=== PATIENT | male | born 1955 | race Caucasian/White ===

== ENCOUNTER 2022-02-07 14:19 | Emergency (ER) | payer MEDICARE, SELFPAY ==
[2022-02-07 14:36] VITALS: BP 151/87; PULSE 97; RESP 16; TEMP 36.8; O2SAT 98
--- NOTE | 2022-02-07 16:01 | ED.URI ---
HPI - URI/Sore Throat General Chief Complaint: Upper Respiratory Infection Stated Complaint: Sinus Congestion Time Seen by Provider: 02/07/22 15:40 Source: patient, RN notes reviewed and old records reviewed Mode of arrival: ambulatory Limitations: no limitations History of Present Illness HPI Narrative: 66-year-old male who presents to [facility] care with complaints OF HEADACHE WITH SINUS PRESSURE AND DRAINAGE FOR THE PAST 3 DAYS, PATIENT REPORT HISTORY OF SINUS PROBLEMS AND SINUS INFECTIONS IN THE PAST. HE STATES THAT HIS DAUGHTER JUST SOLD HER HOUSE AND SHE WAS GETTING READY TO MOVE SO HE WAS OVER THERE ALL WEEKEND SWEEPING CLEANING OF HOUSE AND WAS EXPOSED TO A LOT OF DUST IN THE BASEMENT. PATIENT STATES THAT HIS HEADACHE HAS DECREASED SOME BUT HE CONTINUES TO HAVE FACIAL PRESSURE AND PAIN, NASAL DRAINAGE AND SOME DRY COUGH.PATIENT REPORTS THAT HE HAS TAKEN IBUPROFEN MD elicited complaint: cough, rhinorrhea, nasal congestion and sinus pain Onset (ago): day(s) (3) Pain scale (0-10): 4 Description of mucous: clear Able to tolerate fluids by mouth: Yes Treatments prior to arrival: ibuprofen and other (DAYQUIL AND NYQUIL) Related Data Allergies Allergy/AdvReac Type Severity Reaction Status Date / Time codeine Allergy Unknown Itching Verified 02/07/22 14:51 Review of Systems Review of Systems: CONSTITUTIONAL: Denies malaise, chills, sweats, or fever. EYES: Denies visual changes, redness, or discharge. ENT: Reports rhinorrhea, congestion, sinus pain, NO otalgia and sore throat. CARDIOVASCULAR: Denies chest pain, palpitations, or edema. RESPIRATORY: Reports cough.? Denies dyspnea. GASTROINTESTINAL: Denies abdominal pain, nausea, vomiting, diarrhea SKIN: Denies rash or itching. MUSCULOSKELETAL: Denies myalgia. NEUROLOGIC:REPORTS headache. All systems reviewed & are unremarkable except as noted in HPI and below PMFSH Past Medical History Medical History (Updated 02/07/22 @ 16:36 by Siri Hogan NP) Heart attack Hypertension Hypothyroid Surgical History Surgical History (Updated 02/07/22 @ 16:38 by Siri Hogan NP) History of heart artery stent Social History Social History (Updated 02/07/22 @ 16:39 by Siri Hogan NP) Smoking status: Never smoker Alcohol intake: unknown Substance use type: does not use Living arrangements: with family Gender identity (if verbalized by the patient): Male Comments At time of signature, agree with nursing past medical, surgical, social and family history. There is no relevant family history pertinent to the presenting complaint Exam Narrative: GENERAL: Well-appearing, well-nourished, and in no acute distress. HEAD: Normocephalic EYES: PERRLA, conjunctivae clear ENT: Nares clear, turbinates edematous and erythematous, clear discharge. Mucous membranes moist. TM pearly lyons with dull light reflex bilaterally; no tragal tenderness. Oropharynx erythematous without lesions. Tonsils not enlarged and without exudate, no drooling, no hoarseness, no trismus, uvula midline. NECK: Supple. No lymphadenopathy CHEST: Clear to auscultation, breath sounds equal. No wheezing, rhonchi, rales, or stridor. No respiratory distress, speaks in full sentences. HEART: Regular rate and rhythm. No murmur heard. SKIN: Warm, dry, no rash. NEURO: Alert and oriented x3. PSYCH: Normal mood and affect Course Course Emergency Course: Patient is aware of diagnosis, understands and agrees to treatment plan.? Anticipatory guidance given.? Patient agrees to follow-up as directed and is aware of reasons to seek care at the emergency department. Portions of this record may have been created with voice recognition software Level of Care: Express Care Visit Vital Signs Vital signs: Vital Signs Temperature 36.8 C 02/07/22 14:36 Pulse Rate 97 02/07/22 14:36 Respiratory Rate 16 02/07/22 14:36 Blood Pressure 151/87 H 02/07/22 14:36 Pulse Oximetry
== END 2022-02-07 16:18 | disposition home or self-care (01) ==
PROVIDERS: Emergency Provider Registered Nurse; PCP Family Medicine
DX: J32.9 Chronic sinusitis, unspecified (principal); I10 Essential (primary) hypertension; E03.9 Hypothyroidism, unspecified; I25.2 Old myocardial infarction
CPT/HCPCS: 99203; G0463

== ENCOUNTER 2022-02-24 09:37 | Emergency (ER) | payer MEDICARE, SELFPAY ==
[2022-02-24 09:50] VITALS: BP 145/90; PULSE 68; RESP 20; TEMP 36.3; O2SAT 100
--- NOTE | 2022-02-24 10:09 | ED.URI ---
HPI - URI/Sore Throat General Chief Complaint: Upper Respiratory Infection Stated Complaint: sore throat deep cough Time Seen by Provider: 02/24/22 09:55 Source: patient Mode of arrival: ambulatory Limitations: no limitations History of Present Illness HPI Narrative: Mr. Olvera is a 66-year-old male patient presenting to the clinic today with complaints of sore throat, cough, and head congestion x2 days. He reports that the sore throat got worse this morning. Cough is productive and clear/white phlegm. He denies any fever or chills. He does use a CPAP at night. MD elicited complaint: cough, sore throat and nasal congestion Related Data Home Medications Medication Instructions Recorded Confirmed atorvastatin 80 mg tablet 80 mg PO DAILY 02/24/22 02/24/22 diclofenac sodium 75 mg 75 mg PO BID 02/24/22 02/24/22 tablet,delayed release donepezil 5 mg tablet 5 mg PO DAILY 02/24/22 02/24/22 levothyroxine 112 mcg tablet 112 mcg PO DAILY 02/24/22 02/24/22 losartan 50 mg tablet 50 mg PO DAILY 02/24/22 02/24/22 metoprolol succinate 100 mg 100 mg PO DAILY 02/24/22 02/24/22 tablet,extended release 24 hr potassium chloride 20 mEq 20 meq PO BID 02/24/22 02/24/22 tablet,extended release(part/cryst) tramadol 50 mg tablet 50 mg PO DAILY PRN Pain (Scale 02/24/22 02/24/22 Score 4-6) Allergies Allergy/AdvReac Type Severity Reaction Status Date / Time codeine Allergy Unknown Itching Verified 02/07/22 14:51 Review of Systems Review of Systems: Pertinent positives per HPI. Patient denies any fever, chills, rash, headache, visual changes, dizziness, shortness of breath, chest pain, palpitations, nausea, vomiting, diarrhea, constipation, abdominal pain, or any urinary issues. [facility] Past Medical History Medical History Heart attack Hypertension Hypothyroid Surgical History Surgical History History of heart artery stent Social History Social History Smoking status: Never smoker Alcohol intake: unknown Substance use type: does not use Gender identity (if verbalized by the patient): Male Comments At the time of my signature, I reviewed and agree with the nursing past medical, surgical, social, and family history. There is no relevant family history pertinent to the patient complaint. Exam Narrative: General: Well-developed, well nourished, in no apparent distress Head: Normocephalic, atraumatic Eyes: Pupils equally round and reactive to light bilaterally, EOM intact, sclera and conjunctive clear, no discharge, lids normal Ears: TMs intact and clear, ear canals clear, no drainage, grossly hearing normal. Nose: Nares patent, clear nasal discharge, moderate inflammation, no sinus tenderness. Mouth: Oral pharynx without lesions or masses, good dentition, MMM. Postnasal drip Neck: Supple, trachea midline, no enlargement of anterior or posterior cervical nodes, no thyroid masses or goiter palpable. Cardio: Regular rate and rhythm, s1 and s2 normal, no murmur appreciated. Resp: Clear to auscultation bilaterally, no rhonchi, rales, wheezing or rubs Course Course Emergency Course: Portions of this record may have been created with voice recognition software. Level of Care: Express Care Visit Vital Signs Vital signs: Vital Signs Temperature 36.3 C L 02/24/22 09:50 Pulse Rate 68 02/24/22 09:50 Respiratory Rate 20 02/24/22 09:50 Blood Pressure 145/90 H 02/24/22 09:50 Pulse Oximetry 100 02/24/22 09:50 Oxygen Delivery Room Air 02/24/22 09:50 Temperature 36.3 C L 02/24/22 09:50 Pulse Rate 68 02/24/22 09:50 Respiratory Rate 20 02/24/22 09:50 Blood Pressure 145/90 H 02/24/22 09:50 Pulse Oximetry 100 02/24/22 09:50 Oxygen Delivery Room Air 02/24/22 09:50 Vital signs reviewed MDM - U
== END 2022-02-24 10:34 | disposition home or self-care (01) ==
PROVIDERS: Emergency Provider Nurse Practitioner Family; PCP Family Medicine
DX: J02.9 Acute pharyngitis, unspecified (principal); J06.9 Acute upper respiratory infection, unspecified; R09.82 Postnasal drip; I10 Essential (primary) hypertension; E03.9 Hypothyroidism, unspecified; I25.2 Old myocardial infarction; Z95.5 Presence of coronary angioplasty implant and graft
CPT/HCPCS: 87081; 87880; 99213; G0463

== ENCOUNTER 2023-03-28 15:37 | Emergency (ER) | payer MEDICARE, SELFPAY ==
--- NOTE | 2023-03-28 15:50 | ED.MALEGU ---
HPI - Male Genitourinary General Chief complaint: Extremity Problem,Nontraumatic Stated complaint: fever/aches/painful urination Time Seen by Provider: 03/28/23 15:53 Source: patient, RN notes reviewed and old records reviewed Mode of arrival: ambulatory Limitations: no limitations History of Present Illness HPI Narrative: 67 year old male presents to express care with complaints of painful urination, urinary frequency, dribbling of urine for the past 5 days, states that it dougherty when he urinated. Patient also states that he has had some chills and also some body aches denies any known fevers. Patient also states that he has a bruise to his right upper inner thigh for 5 days with bruising noted to be fading then recalls he did fall when he was deer hunting during that time. MD Complaint: dysuria and other (chills and body aches) Onset (ago): day(s) (5) Severity scale (1-10): 8 Quality: burning Associated symptoms: Reports dysuria and other (dribbling urine) Related Data Home Medications Medication Instructions Recorded Confirmed atorvastatin 80 mg tablet 80 mg PO DAILY 02/24/22 03/28/23 diclofenac sodium 75 mg 75 mg PO BID 02/24/22 03/28/23 tablet,delayed release donepezil 5 mg tablet 5 mg PO DAILY 02/24/22 03/28/23 levothyroxine 112 mcg tablet 112 mcg PO DAILY 02/24/22 03/28/23 losartan 50 mg tablet 50 mg PO DAILY 02/24/22 03/28/23 metoprolol succinate 100 mg 100 mg PO DAILY 02/24/22 03/28/23 tablet,extended release 24 hr potassium chloride 20 mEq 20 meq PO BID 02/24/22 03/28/23 tablet,extended release(part/cryst) tramadol 50 mg tablet 50 mg PO DAILY PRN Pain (Scale 02/24/22 03/28/23 Score 4-6) Allergies Allergy/AdvReac Type Severity Reaction Status Date / Time codeine Allergy Unknown Itching Verified 03/28/23 16:07 Review of Systems Review of Systems: CONSTITUTIONAL: Reports no fever,positive for chills, or sweats. CARDIOVASCULAR: Denies chest pain, palpitations, or edema. RESPIRATORY: Denies cough or dyspnea. GASTROINTESTINAL: Denies abdominal pain, nausea, vomiting, or diarrhea. GENITOURINARY: Reports dysuria, frequency, urgency dribbling urine Denies flank pain or hematuria. SKIN: Denies rash or itching.fading bruise to right inner thigh MUSCULOSKELETAL: Denies back pain or myalgia. Denies CVA tenderness NEUROLOGIC: Denies headache All systems reviewed & are unremarkable except as noted in HPI and below PMFSH Past Medical History Medical History Brain tumor Dementia Heart attack Hypertension Hypothyroid Kidney stone Neutropenia Surgical History Surgical History History of heart artery stent Social History Social History Smoking status: Never smoker Alcohol intake: unknown Substance use type: does not use Living arrangements: with family Gender identity (if verbalized by the patient): Male Comments At time of signature, agree with nursing past medical, surgical, social and family history. There is no relevant family history pertinent to the presenting complaint Exam Narrative: GENERAL: Well-appearing, well-nourished, and in no acute distress. HEAD: Normocephalic, atraumatic. NECK: Supple. no lymphadenopathy CHEST: Clear to auscultation. No respiratory distress.SAO2 98% on room air HEART: Regular rate and rhythm. No murmur heard. Normal peripheral pulses. ABDOMEN: Soft, nontender, nondistended, normal active bowel sounds. No CVA tenderness, reports burning on urination, dribbling of urine and frequency of urination, no testicle pain EXTREMITIES: Normal range of motion. No edema. SKIN: Warm, dry, no rash.fading bruise right thigh 6cmX12 cm NEURO: No focal deficits. Alert and oriented x3.appears forgetful Course Course Emergency Course: Patient is aware of diagnosis, understands and agrees to treatment p
[2023-03-28 15:51] VITALS: BP 126/74; PULSE 86; RESP 18; TEMP 36.7; O2SAT 98
== END 2023-03-28 16:50 | disposition home or self-care (01) ==
PROVIDERS: Emergency Provider Registered Nurse; PCP Family Medicine
DX: N39.0 Urinary tract infection, site not specified (principal); B96.20 Unspecified Escherichia coli [E. coli] as the cause of diseases classified elsewhere; Z20.822 Contact with and (suspected) exposure to COVID-19; F03.90 Unspecified dementia, unspecified severity, without behavioral disturbance, psychotic disturbance, mood disturbance, and anxiety; I10 Essential (primary) hypertension; E03.9 Hypothyroidism, unspecified; I25.10 Atherosclerotic heart disease of native coronary artery without angina pectoris; Z95.5 Presence of coronary angioplasty implant and graft; I25.2 Old myocardial infarction
CPT/HCPCS: 81003; 87077; 87086; 87186; 87426; 87804; 99213; C9803; G0463

== ENCOUNTER 2023-04-05 19:38 | Emergency (ER) | payer MEDICARE, SELFPAY ==
[2023-04-05 19:44] VITALS: BP 155/86; PULSE 75; RESP 20; TEMP 36.6; O2SAT 95
[2023-04-05 19:55] VITALS: BP 155/86; PULSE 75; RESP 20; TEMP 36.6; O2SAT 95
--- NOTE | 2023-04-05 20:06 | ED.GENADULT ---
HPI - General Adult General Chief complaint: Urogenital-Male Stated complaint: Body Aches, Lethargic Source: patient Mode of arrival: ambulatory Limitations: no limitations History of Present Illness HPI narrative: Patient presents for evaluation of urinary symptoms. He was evaluated here on 03/28/2023 and was diagnosed with the UTI. He was started on cephalexin. Urine culture grew out E coli. He was contacted on switched to Cipro which she took as directed. He completed therapy this morning. He indicates his urinary symptoms are 75% better. He saw Urology on Friday of this week. He indicates he had a prostate biopsy in June of this year which was negative for malignancy. He indicates that Urology told him to follow up every 6 months. He reports some mild dysuria. He has 2-3 episode per night nocturia with urinary frequency, hesitancy, decreased force of urinary stream and urgency. He denies any fever, chills, nausea, vomiting, abdominal pain, low back pain. He actually had a urinalysis performed outpatient today and shows me result on his phone that showed 11-20 WBC's. Negative for nitrates, leukocytes. Related Data Home Medications Medication Instructions Recorded Confirmed atorvastatin 80 mg tablet 80 mg PO DAILY 02/24/22 04/05/23 diclofenac sodium 75 mg 75 mg PO BID 02/24/22 04/05/23 tablet,delayed release donepezil 5 mg tablet 5 mg PO DAILY 02/24/22 04/05/23 levothyroxine 112 mcg tablet 112 mcg PO DAILY 02/24/22 04/05/23 losartan 50 mg tablet 50 mg PO DAILY 02/24/22 04/05/23 metoprolol succinate 100 mg 100 mg PO DAILY 02/24/22 04/05/23 tablet,extended release 24 hr potassium chloride 20 mEq 20 meq PO BID 02/24/22 04/05/23 tablet,extended release(part/cryst) tramadol 50 mg tablet 50 mg PO DAILY PRN Pain (Scale 02/24/22 04/05/23 Score 4-6) Allergies Allergy/AdvReac Type Severity Reaction Status Date / Time codeine Allergy Unknown Itching Verified 03/28/23 16:07 Review of Systems Review of Systems: CONSTITUTIONAL: Denies fever, chills, or sweats. EYES: Denies visual changes, redness, or discharge. ENT: Denies rhinorrhea, congestion, sore throat, or otalgia. CARDIOVASCULAR: Denies chest pain, palpitations, or edema. RESPIRATORY: Denies cough or dyspnea. GASTROINTESTINAL: Denies abdominal pain, nausea, vomiting, or diarrhea. GENITOURINARY: Reports mild dysuria. Reports urinary urgency, frequency, hesitancy, nocturia. SKIN: Denies rash or itching. MUSCULOSKELETAL: Denies back pain, joint pain, or myalgia. NEUROLOGIC: Denies headache, numbness, dizziness, or weakness. PSYCHIATRIC: Denies anxiety or depression. [facility] Past Medical History Medical History Brain tumor Dementia Heart attack Hypertension Hypothyroid Kidney stone Neutropenia Surgical History Surgical History History of heart artery stent Family History Family History Mother Family history non-contributory Social History Social History Smoking status: Never smoker Alcohol intake: unknown Substance use type: does not use Living arrangements: with family Gender identity (if verbalized by the patient): Male Exam Narrative: GENERAL: Well-appearing, well-nourished, and in no acute distress. HEAD: Normocephalic, atraumatic. EYES: PERRLA and EOMI. ENT: Nares clear, no rhinorrhea or epistaxis. Mucous membranes moist. Oropharynx without tonsillar hypertrophy exudate or other lesions. Bilateral TMs pearly lyons nonbulging NECK: Supple. No adenopathy or masses. No carotid bruits or JVD CHEST: Clear to auscultation. No respiratory distress. No wheezes rales or rhonchi HEART: Regular rate and rhythm. No murmur heard. Normal peripheral pulses. ABDOMEN: Soft, nontender, nondis
== END 2023-04-05 20:10 | disposition home or self-care (01) ==
PROVIDERS: Emergency Provider Nurse Practitioner; PCP Family Medicine
DX: N30.00 Acute cystitis without hematuria (principal); F03.90 Unspecified dementia, unspecified severity, without behavioral disturbance, psychotic disturbance, mood disturbance, and anxiety; I10 Essential (primary) hypertension; E03.9 Hypothyroidism, unspecified; I25.2 Old myocardial infarction; Z95.5 Presence of coronary angioplasty implant and graft
CPT/HCPCS: 99213; G0463